=== PATIENT | male | born 1990 | race Two or more races ===

== ENCOUNTER 2020-01-30 23:34 | Emergency (ER) | payer MEDICAID, OTHER ==
[~2020-01-30] VITALS: Ht 170.2 cm; Wt 101.0 kg
--- NOTE | 2020-01-30 23:57 | NUR ---
29 YO MALE CC OF SHARP RUQ PAIN 12/05. PT STATES HE DRINKS "A LOT OF ALCOHOL" AND HIS LAST DRINK WAS APPROX 2300 TONGIHT. PT STATES HE VOMITED X3 TODAY "YELLOW ACID". PT LYING ON [facility] ASKING FOR ATIVAN.
[2020-01-31] MEDS ORDERED: LORazepam 1MG TABLET ONE ×2 (00:14→02:01)
[2020-01-31 00:20] LABS: BASOPHILS % (AUTO) 1 % (0-1); EOSINOPHILS % (AUTO) 1 % (1-7); LYMPHOCYTES % (AUTO) 50 % (22-44); MEAN CORPUSCULAR HEMOGLOBIN 31.6 pg (27.5-34.5); MEAN CORPUSCULAR HGB CONC 33.9 g/dL (33.2-36.2); MEAN PLATELET VOLUME 7.6 fL (7.4-10.4); MONOCYTES % (AUTO) 13 % (2-9); NEUTROPHILS % (AUTO) 34 % (42-75); PLATELET COUNT 241 x10^3/uL (130-400); RED BLOOD COUNT 4.51 x10^6/uL (4.38-5.82); RED CELL DISTRIBUTION WIDTH 13.5 % (9.4-14.8)
[2020-01-31] MEDS ORDERED: LORazepam 1MG TABLET PO ONE ×2 (00:30→02:00)
[2020-01-31 00:31] LABS: ALANINE AMINOTRANSFERASE 195 U/L (12-78); ALBUMIN 3.5 g/dL (3.4-5.0); ANION GAP 9 mmol/L (5-15); CALCIUM 8.3 mg/dL (8.5-10.1); CHLORIDE 105 mmol/L (98-107); CREATININE 0.88 mg/dL (0.7-1.3)
[2020-01-31 00:33] LABS: ALKALINE PHOSPHATASE 94 U/L (45-117); BILIRUBIN,TOTAL 0.3 mg/dL (0.2-1.0); TOTAL PROTEIN 7.4 g/dL (6.4-8.2)
[2020-01-31 00:46] LABS: MD SCAN
--- NOTE | 2020-01-31 01:00 | NUR ---
pt lying in bed comfortably. states ativan helps. pt verbalizes wanting to quit drinking so he can care for his son. states he got out of rehab on .
[2020-01-31 01:42] VITALS: BP 115/79
--- NOTE | 2020-01-31 02:05 | NUR ---
pt requesting more ativan before dc. states he is becoming shakey again and anxious. erp made aware.
--- NOTE | 2020-01-31 02:14 | NUR ---
pt dc home, ambulatory, being picked up by friend. all questions answered
== END 2020-01-31 02:17 | disposition home or self-care (01) ==
LOC: ED 01-31 01:11
DX: R10.13 Epigastric pain (principal); R10.11 Right upper quadrant pain; F10.20 Alcohol dependence, uncomplicated; Y90.9 Presence of alcohol in blood, level not specified
CPT/HCPCS: 36415; 76700; 80053; 83690; 83735; 85025; 99284

== ENCOUNTER 2020-02-06 19:48 | Emergency (ER) | payer SELFPAY ==
[~2020-02-06] VITALS: Ht 170.2 cm; Wt 112.4 kg
--- NOTE | 2020-02-06 20:23 | NUR ---
assessment made. PA at bedside.
--- NOTE | 2020-02-06 20:44 | NUR ---
landscaping and groundskeeping laborer at bedside. EKG done.
[2020-02-06 20:53] LABS: BASOPHILS % (AUTO) 1 % (0-1); EOSINOPHILS % (AUTO) 2 % (1-7); LYMPHOCYTES % (AUTO) 43 % (22-44); MEAN CORPUSCULAR HGB CONC 34.3 g/dL (33.2-36.2); MEAN PLATELET VOLUME 7.7 fL (7.4-10.4); MONOCYTES % (AUTO) 11 % (2-9); NEUTROPHILS % (AUTO) 42 % (42-75); PLATELET COUNT 247 x10^3/uL (130-400); RED BLOOD COUNT 4.56 x10^6/uL (4.38-5.82); RED CELL DISTRIBUTION WIDTH 13.8 % (9.4-14.8)
[2020-02-06 20:57] LABS: MD NO
[2020-02-06 21:02] LABS: ALBUMIN 3.6 g/dL (3.4-5.0); ANION GAP 6 mmol/L (5-15); CALCIUM 8.6 mg/dL (8.5-10.1); CHLORIDE 106 mmol/L (98-107); CREATININE 1.24 mg/dL (0.7-1.3)
[2020-02-06 21:05] LABS: ALKALINE PHOSPHATASE 129 U/L (45-117); BILIRUBIN,TOTAL 0.4 mg/dL (0.2-1.0); TOTAL PROTEIN 7.8 g/dL (6.4-8.2)
[2020-02-06 21:19] LABS: ALANINE AMINOTRANSFERASE 192 U/L (12-78)
[2020-02-06] MEDS ORDERED: LORazepam 1MG TABLET ONE (21:28)
[2020-02-06] MEDS ORDERED: LORazepam 1MG TABLET PO ONE (21:30)
--- NOTE | 2020-02-06 21:31 | NUR ---
patient medicated. patient states that he is willing to detox at home with medication. aware.
--- NOTE | 2020-02-06 22:32 | NUR ---
re-evaluation done. patient discharged with prescriptions and instruction. verbalized understanding.
[2020-02-06 22:33] VITALS: BP 157/101
== END 2020-02-06 22:35 | disposition home or self-care (01) ==
LOC: ED 21:30
DX: K70.10 Alcoholic hepatitis without ascites (principal); R94.5 Abnormal results of liver function studies; R94.31 Abnormal electrocardiogram [ECG] [EKG]
CPT/HCPCS: 36415; 80053; 80307; 83690; 83735; 85025; 93005; 99284

== ENCOUNTER 2020-03-16 20:57 | Emergency (ER) | payer SELFPAY ==
[~2020-03-16] VITALS: Ht 170.2 cm; Wt 106.0 kg
[2020-03-16 21:20] LABS: BASOPHILS % (AUTO) 1 % (0-1); EOSINOPHILS % (AUTO) 1 % (1-7); LYMPHOCYTES % (AUTO) 57 % (22-44); MEAN CORPUSCULAR HEMOGLOBIN 31.4 pg (27.5-34.5); MEAN CORPUSCULAR HGB CONC 34.2 g/dL (33.2-36.2); MEAN PLATELET VOLUME 7.7 fL (7.4-10.4); MONOCYTES % (AUTO) 11 % (2-9); NEUTROPHILS % (AUTO) 30 % (42-75); PLATELET COUNT 255 x10^3/uL (130-400); RED BLOOD COUNT 4.73 x10^6/uL (4.38-5.82); RED CELL DISTRIBUTION WIDTH 13.8 % (9.4-14.8)
[2020-03-16 21:29] LABS: ALANINE AMINOTRANSFERASE 223 U/L (12-78); ALBUMIN 3.8 g/dL (3.4-5.0); ANION GAP 8 mmol/L (5-15); CALCIUM 8.5 mg/dL (8.5-10.1); CHLORIDE 109 mmol/L (98-107); CREATININE 1.09 mg/dL (0.7-1.3)
[2020-03-16 21:32] LABS: ALKALINE PHOSPHATASE 98 U/L (45-117); BILIRUBIN,TOTAL 0.5 mg/dL (0.2-1.0); TOTAL PROTEIN 7.4 g/dL (6.4-8.2)
--- NOTE | 2020-03-16 21:56 | NUR ---
FIRE ENGINEER: PT WALKED BACK FROM LOBBY TO ROOM AT THIS TIME.
[2020-03-16 22:03] LABS: MD SCAN
--- NOTE | 2020-03-16 22:15 | NUR ---
PT RESTING COMFORTABLY IN [facility]. PT'S SON AT BEDSIDE, SON PROVIDED WITH WATER AND CRACKERS.
--- NOTE | 2020-03-16 22:26 | NUR ---
PT STATES "I DROVE MYSELF WITH MY SON". IONA FROM [facility] AFTER HOURS CALLED. IONA TO CALL BACK.
[2020-03-16] MEDS ORDERED: MORPHINE SULFATE 4 MG/ML, 1ML IVPush PRN (22:30)
[2020-03-16] MEDS ORDERED: LORazepam 2 MG/ML, 1ML IVPush ONE (22:30)
[2020-03-16] MEDS ORDERED: SODIUM CHLORIDE FLUSH 10ML SYR IVF ONE (22:30)
[2020-03-16] MEDS ORDERED: ONDANSETRON 2MG/ML, 2ML IVPush ONE (22:30)
[2020-03-16] MEDS ORDERED: SODIUM CHLORIDE 0.9% 1,000ML IVBOLUS ONE (22:30)
[2020-03-16] MEDS ORDERED: THIAMINE 100MG TABLET PO ONE (22:30)
--- NOTE | 2020-03-16 22:55 | NUR ---
Note phulibrado in EDM - 03/16/20 at 2318 by DAVON PER [facility]PS THIS RN TO CALL PT'S SON'S MOTHER. JERMAIN SHENG ([phone]) CALLED, HER WILL BE COMING TO BUSINESS OFFICE MANAGER THE CHILD. PATIENT WAS NOTIFIED, PATIENT AGREES.
--- NOTE | 2020-03-16 22:55 | NUR ---
PER [facility] THIS RN TO CALL PT'S SON'S MOTHER. JERMAINJOSE CARLOS BRASHERDONADO ([phone]) CALLED, HER WILL BE COMING TO SYSTEM CONFIGURATION SPECIALIST THE CHILD. PATIENT WAS NOTIFIED, PATIENT AGREES.
--- NOTE | 2020-03-16 23:05 | NUR ---
Nathan baylibrado in EDM - 03/16/20 at 2318 by DAVON [facility] CALLED BACK. CORI MONSON AT [facility] THIS RN IS TO CALL [employer] TO MANDATORY REPORT CHILD ENDANGERMENT DUE TO PT STATING THAT HE DROVE INTOXICATED WITH HIS SON.
--- NOTE | 2020-03-16 23:05 | NUR ---
[facility] CALLED BACK. PER IONA AT [facility] THIS RN IS TO CALL [employer] TO MANDATORY REPORT CHILD ENDANGERMENT DUE TO PT STATING THAT HE DROVE INTOXICATED WITH HIS SON.
--- NOTE | 2020-03-16 23:15 | NUR ---
[employer] DISPATCH CALLED BY THIS RN. THIS RN SPOKE TO RADHA WITH [facility] TO MANDATORY REPORT CHILD ENDANGERMENT DUE TO PT DRIVING INTOXICATED WITH THE CHILD. PER RADHA THEY WILL SEND OFFICERS.
--- NOTE | 2020-03-16 23:25 | NUR ---
PT'S SON'S STEP DAD, KI ALLEN, ARRIVED TO TAKE CHILD. [employer] ALSO ARRIVED TO SPEAK TO PT.
[2020-03-16] MEDS ORDERED: THIAMINE 100MG TABLET ONE (23:39)
[2020-03-16] MEDS ORDERED: MORPHINE SULFATE 4 MG/ML, 1ML ONE (23:52)
--- NOTE | 2020-03-17 | NUR ---
PER [employer] THIS WILL "BE AN INCIDENT REPORT DUE TO THE TIMELINE AND THE FACT THAT NO ONE SAW THE PT DRIVING". D OFFICER CEDRIC (BADGE #[id number]) AND OFFICER NILESH (BADGE #[id number]) SPOKE TO THE PT AND PER THE OFFICERS THE CASE # FOR THIS CASE IS [id number].
[2020-03-17] MEDS ORDERED: ONDANSETRON 2MG/ML, 2ML ONE (00:10)
--- NOTE | 2020-03-17 01:10 | NUR ---
PT CALLED A FRIEND TO COME PICK HIM UP. PT AMBULATED STEADILY WITHOUT ASSISTANCE TO DISCHARGE DESK.
[2020-03-17 01:12] VITALS: BP 121/79
== END 2020-03-17 01:21 | disposition home or self-care (01) ==
LOC: ED 23:53
DX: K85.20 Alcohol induced acute pancreatitis without necrosis or infection (principal); K29.20 Alcoholic gastritis without bleeding; F10.20 Alcohol dependence, uncomplicated; R10.13 Epigastric pain; R11.2 Nausea with vomiting, unspecified; Y90.0 Blood alcohol level of less than 20 mg/100 ml
CPT/HCPCS: 36415; 80053; 83690; 85025; 96361; 96374; 96375; 99285; J2270; J2405; J7030

== ENCOUNTER 2020-04-06 00:10 | Emergency (ER) | payer MEDICAID, OTHER ==
[~2020-04-06] VITALS: Ht 170.2 cm; Wt 100.1 kg
[2020-04-06 00:15] VITALS: BP 122/77
[2020-04-06] MEDS ORDERED: FAMOTIDINE 20 MG TABLET PO/NG ONE (00:30)
[2020-04-06] MEDS ORDERED: OXYcodone/APAP 5/325MG TABLET PO ONE (00:30)
[2020-04-06] MEDS ORDERED: MAALOX/HYOSCYAMINE/LIDOCAINE 45 ML BTL PO ONE (00:30)
[2020-04-06] MEDS ORDERED: OXYcodone/APAP 5/325MG TABLET ONE (00:35)
[2020-04-06] MEDS ORDERED: FAMOTIDINE 20 MG TABLET ONE (00:35)
[2020-04-06] MEDS ORDERED: MAALOX/HYOSCYAMINE/LIDOCAINE 45 ML BTL ONE (00:35)
--- NOTE | 2020-04-06 00:42 | NUR ---
Patient presents to ER c/o SOB and epigastric pain x8 hours. Patient states he tested +COVID approx one week ago.
[2020-04-06 00:50] LABS: BASOPHILS % (AUTO) 0 % (0-1); EOSINOPHILS % (AUTO) 0 % (1-7); LYMPHOCYTES % (AUTO) 36 % (22-44); MEAN CORPUSCULAR HEMOGLOBIN 31.3 pg (27.5-34.5); MEAN CORPUSCULAR HGB CONC 34.5 g/dL (33.2-36.2); MEAN PLATELET VOLUME 7.7 fL (7.4-10.4); MONOCYTES % (AUTO) 11 % (2-9); NEUTROPHILS % (AUTO) 53 % (42-75); PLATELET COUNT 300 x10^3/uL (130-400); RED BLOOD COUNT 5.27 x10^6/uL (4.38-5.82); RED CELL DISTRIBUTION WIDTH 13.7 % (9.4-14.8)
[2020-04-06 00:52] LABS: MD NO
[2020-04-06 01:00] LABS: ALANINE AMINOTRANSFERASE 250 U/L (12-78); ALBUMIN 3.3 g/dL (3.4-5.0); ANION GAP 12 mmol/L (5-15); CALCIUM 8.5 mg/dL (8.5-10.1); CHLORIDE 107 mmol/L (98-107); CREATININE 0.86 mg/dL (0.7-1.3)
[2020-04-06 01:02] LABS: ALKALINE PHOSPHATASE 173 U/L (45-117); BILIRUBIN,TOTAL 0.2 mg/dL (0.2-1.0)
--- NOTE | 2020-04-06 01:42 | NUR ---
Discharge instructions given. All questions and concerns addressed. Patient ambulatory with a steady gait. Belongings with patient.
== END 2020-04-06 01:43 | disposition home or self-care (01) ==
LOC: ED 01:24
DX: K85.20 Alcohol induced acute pancreatitis without necrosis or infection (principal); U07.1 COVID-19; K29.20 Alcoholic gastritis without bleeding; F10.10 Alcohol abuse, uncomplicated; R00.0 Tachycardia, unspecified; I21.9 Acute myocardial infarction, unspecified; R94.31 Abnormal electrocardiogram [ECG] [EKG]; F17.200 Nicotine dependence, unspecified, uncomplicated; Y90.9 Presence of alcohol in blood, level not specified
CPT/HCPCS: 36415; 71045; 80053; 83690; 85025; 93005; 99285

== ENCOUNTER 2020-04-18 02:53 | Emergency (ER) | payer MEDICAID, OTHER ==
[~2020-04-18] VITALS: Ht 170.2 cm; Wt 99.6 kg
[2020-04-18] MEDS ORDERED: PROMETHAZINE 25 MG/ML, 1ML IM ONE (03:30)
[2020-04-18] MEDS ORDERED: PANTOPRAZOLE 40 MG IV IVPush ONE (03:30)
[2020-04-18] MEDS ORDERED: SODIUM CHLORIDE 0.9% 1,000ML IVBOLUS ONE (03:30)
[2020-04-18] MEDS ORDERED: THIAMINE 100 MG in SODIUM CHLORIDE 0.9% 50 ML IV ONE (03:30)
[2020-04-18] MEDS ORDERED: ONDANSETRON 2MG/ML, 2ML IVPush ONE (03:30)
[2020-04-18] MEDS ORDERED: SODIUM CHLORIDE FLUSH 10ML SYR IVF ONE (03:30)
[2020-04-18] MEDS ORDERED: MORPHINE SULFATE 4 MG/ML, 1ML ONE ×2 (03:31→04:04)
[2020-04-18] MEDS ORDERED: PROMETHAZINE 25 MG/ML, 1ML ONE (03:31)
[2020-04-18] MEDS ORDERED: ONDANSETRON 2MG/ML, 2ML ONE (03:32)
[2020-04-18] MEDS: MORPHINE SULFATE 4 MG/ML, 1ML IVPush PRN ×2 (03:44→04:07)
[2020-04-18 03:48] LABS: MEAN CORPUSCULAR HEMOGLOBIN 31.5 pg (27.5-34.5); MEAN CORPUSCULAR HGB CONC 34.8 g/dL (33.2-36.2); MEAN PLATELET VOLUME 7.6 fL (7.4-10.4); PLATELET COUNT 271 x10^3/uL (130-400); RED BLOOD COUNT 5.04 x10^6/uL (4.38-5.82); RED CELL DISTRIBUTION WIDTH 13.4 % (9.4-14.8)
[2020-04-18] MEDS ORDERED: THIAMINE 100MG TABLET ONE (03:49)
[2020-04-18] MEDS ORDERED: PANTOPRAZOLE 40 MG IV ONE (03:49)
--- NOTE | 2020-04-18 03:53 | NUR ---
assessment made. ERP at bedside.
--- NOTE | 2020-04-18 03:53 | NUR ---
IV placed. blood drawn and sent to lab. medicated for pain and nausea.
[2020-04-18 03:58] LABS: ALANINE AMINOTRANSFERASE 255 U/L (12-78); ALBUMIN 3.3 g/dL (3.4-5.0); ANION GAP 8 mmol/L (5-15); CALCIUM 8.4 mg/dL (8.5-10.1); CHLORIDE 112 mmol/L (98-107); CREATININE 1.12 mg/dL (0.7-1.3)
[2020-04-18 04:00] LABS: ALKALINE PHOSPHATASE 148 U/L (45-117); BILIRUBIN,TOTAL 0.4 mg/dL (0.2-1.0); TOTAL PROTEIN 7.8 g/dL (6.4-8.2)
--- NOTE | 2020-04-18 04:11 | NUR ---
patient re-medicated for pain. thiamine hung.
[2020-04-18 04:23] LABS: MD YES
[2020-04-18 04:27] LABS: <PLATELET ESTIMATE> ADEQUATE; <PLT MORPHOLOGY> NORMAL PLT MORPH; <RBC MORPHOLOGY> NORMAL; BASOS#(MANUAL) 0.07 x10^3/uL (0-0.1); BASOS% (MANUAL) 1 % (0-1); LYMPH#(MANUAL) 4.13 x10^3/uL (1-3.4); LYMPHS% (MANUAL) 59 % (22-44); MONOS#(MANUAL) 0.49 x10^3/uL (0.3-2.7); MONOS% (MANUAL) 7 % (2-9); SEG#(MANUAL) 2.31 x10^3/uL (1.8-6.8); SEGS% (MANUAL) 33 % (42-75)
--- NOTE | 2020-04-18 04:35 | NUR ---
reliability technicians at bedside.
--- NOTE | 2020-04-18 04:51 | NUR ---
patient been environmental engineering manager light several times. explained that MD is waiting for the results and no pain medication at this time.
--- NOTE | 2020-04-18 05:18 | NUR ---
re-evaluation done. patient discharged with prescriptions and instruction. verbalized understanding.
[2020-04-18 05:19] VITALS: BP 97/68
== END 2020-04-18 05:23 | disposition home or self-care (01) ==
LOC: ED 05:20
DX: U07.1 COVID-19 (principal); J40 Bronchitis, not specified as acute or chronic; K85.20 Alcohol induced acute pancreatitis without necrosis or infection; K29.20 Alcoholic gastritis without bleeding; R00.0 Tachycardia, unspecified; Y90.0 Blood alcohol level of less than 20 mg/100 ml; F10.229 Alcohol dependence with intoxication, unspecified; R94.5 Abnormal results of liver function studies; Z72.9 Problem related to lifestyle, unspecified
CPT/HCPCS: 36415; 71045; 80053; 80320; 83690; 85025; 93005; 96365; 96372; 96375; 99285; C9113; J2270; J2405; J2550; J3411; J7030; G0480

== ENCOUNTER 2020-05-09 21:53 | Emergency (ER) | payer MEDICAID ==
[~2020-05-09] VITALS: Ht 170.2 cm; Wt 103.2 kg
[2020-05-09] MEDS ORDERED: THIAMINE 100MG TABLET ONE (22:37)
[2020-05-09] MEDS ORDERED: LORazepam 1MG TABLET ONE (22:38)
--- NOTE | 2020-05-09 22:42 | NUR ---
PT COMES IN VIA POV D/T "FEELING SICK FROM WITHDRAWALS". PER PT HE HASN'T DRANK TODAY BUT NORMALLY DRINKS "THREE LARGE CROWN ROYAL BOTTLES" A DAY. PT REPORTS LAST DRINK WAS LAST NIGHT AROUND 2200. PT RESTING IN [facility], MEDICATED PER EMAR, WCTM. MONITORING IN PLACE, MEENAKSHI AT THIS TIME.
[2020-05-09 22:59] LABS: MEAN CORPUSCULAR HEMOGLOBIN 31.1 pg (27.5-34.5); MEAN CORPUSCULAR HGB CONC 34.3 g/dL (33.2-36.2); MEAN PLATELET VOLUME 7.1 fL (7.4-10.4); PLATELET COUNT 226 x10^3/uL (130-400); RED BLOOD COUNT 5.08 x10^6/uL (4.38-5.82); RED CELL DISTRIBUTION WIDTH 14.5 % (9.4-14.8)
[2020-05-09] MEDS ORDERED: THIAMINE 100MG TABLET PO ONE (23:00)
[2020-05-09] MEDS ORDERED: LORazepam 1MG TABLET PO ONE (23:00)
[2020-05-09 23:11] LABS: ALBUMIN 3.8 g/dL (3.4-5.0); ANION GAP 10 mmol/L (5-15); CALCIUM 8.8 mg/dL (8.5-10.1); CHLORIDE 110 mmol/L (98-107)
[2020-05-09 23:22] LABS: ALKALINE PHOSPHATASE 95 U/L (45-117); BILIRUBIN,TOTAL 0.3 mg/dL (0.2-1.0); CREATININE 0.93 mg/dL (0.7-1.3); TOTAL PROTEIN 7.6 g/dL (6.4-8.2)
[2020-05-09 23:41] LABS: ALANINE AMINOTRANSFERASE 189 U/L (12-78)
[2020-05-09 23:46] LABS: MD YES
[2020-05-09 23:47] LABS: <PLATELET ESTIMATE> ADEQUATE; <PLT MORPHOLOGY> NORMAL PLT MORPH; <RBC MORPHOLOGY> NORMAL; BASOS#(MANUAL) 0.09 x10^3/uL (0-0.1); BASOS% (MANUAL) 2 % (0-1); EOS#(MANUAL) 0.18 x10^3/uL (0.0-0.4); EOS% (MANUAL) 4 % (1-7); LYMPH#(MANUAL) 2.07 x10^3/uL (1-3.4); LYMPHS% (MANUAL) 46 % (22-44); MONOS#(MANUAL) 1.13 x10^3/uL (0.3-2.7); MONOS% (MANUAL) 25 % (2-9); SEG#(MANUAL) 1.04 x10^3/uL (1.8-6.8); SEGS% (MANUAL) 23 % (42-75)
[2020-05-09 23:50] VITALS: BP 143/99
--- NOTE | 2020-05-10 00:38 | NUR ---
PT GIVEN DISCHARGE INSTRUCTIONS AND EDUCATION. PT AMBULATED TO DISCHARGE DESK, SECURITY THERE TO WALK PT OUT TO PARKING LOT AND ENSURE PT DOES NOT DRIVE HIS OWN VEHICLE HOME. PER PT HE HAS A FRIEND COMING TO PICK HIM UP AND DRIVE HIM HOME.
== END 2020-05-10 00:42 | disposition home or self-care (01) ==
LOC: ED 23:09
DX: F10.129 Alcohol abuse with intoxication, unspecified (principal); R10.11 Right upper quadrant pain; R11.2 Nausea with vomiting, unspecified; F17.210 Nicotine dependence, cigarettes, uncomplicated; J45.909 Unspecified asthma, uncomplicated; Y90.0 Blood alcohol level of less than 20 mg/100 ml
CPT/HCPCS: 36415; 80053; 80320; 83690; 85025; 99283; G0480

== ENCOUNTER 2020-05-31 00:58 | Emergency (ER) | payer MEDICAID ==
[~2020-05-31] VITALS: Ht 170.2 cm; Wt 108.4 kg
[2020-05-31] MEDS ORDERED: MAALOX/HYOSCYAMINE/LIDOCAINE 45 ML BTL ONE (01:13)
[2020-05-31] MEDS ORDERED: ONDANSETRON 2MG/ML, 2ML ONE (01:13)
[2020-05-31] MEDS ORDERED: FAMOTIDINE 20 MG/2 ML ONE (01:14)
[2020-05-31] MEDS ORDERED: FAMOTIDINE 20 MG/2 ML IV ONE (01:30)
[2020-05-31] MEDS ORDERED: ONDANSETRON 2MG/ML, 2ML IVPush ONE (01:30)
[2020-05-31] MEDS ORDERED: SODIUM CHLORIDE FLUSH 10ML SYR IVF ONE (01:30)
[2020-05-31] MEDS ORDERED: MAALOX/HYOSCYAMINE/LIDOCAINE 45 ML BTL PO ONE (01:30)
[2020-05-31] MEDS ORDERED: SODIUM CHLORIDE 0.9% 1,000ML IVBOLUS ONE (01:30)
[2020-05-31 01:35] LABS: BASOPHILS % (AUTO) 1 % (0-1); EOSINOPHILS % (AUTO) 1 % (1-7); LYMPHOCYTES % (AUTO) 50 % (22-44); MEAN CORPUSCULAR HEMOGLOBIN 31.1 pg (27.5-34.5); MEAN CORPUSCULAR HGB CONC 34.6 g/dL (33.2-36.2); MEAN PLATELET VOLUME 7.8 fL (7.4-10.4); MONOCYTES % (AUTO) 8 % (2-9); NEUTROPHILS % (AUTO) 40 % (42-75); PLATELET COUNT 224 x10^3/uL (130-400); RED BLOOD COUNT 5.17 x10^6/uL (4.38-5.82); RED CELL DISTRIBUTION WIDTH 14.2 % (9.4-14.8)
[2020-05-31 01:38] LABS: MD NO
[2020-05-31 01:44] LABS: ALANINE AMINOTRANSFERASE 179 U/L (12-78); ALBUMIN 3.7 g/dL (3.4-5.0); ANION GAP 9 mmol/L (5-15); CALCIUM 8.8 mg/dL (8.5-10.1); CHLORIDE 108 mmol/L (98-107); CREATININE 0.98 mg/dL (0.7-1.3)
[2020-05-31 01:46] LABS: ALKALINE PHOSPHATASE 105 U/L (45-117); BILIRUBIN,TOTAL 0.4 mg/dL (0.2-1.0); TOTAL PROTEIN 7.9 g/dL (6.4-8.2)
--- NOTE | 2020-05-31 01:56 | NUR ---
PT SITTING UPRIGHT ON MEENAKSHI FUENTES VSS. PT DENIES ANY NEEDS AT THIS TIME. CALL LIGHT IN REACH. ERP AT BEDSIDE.
--- NOTE | 2020-05-31 01:58 | NUR ---
Nathan wong in DAVID - 05/31/20 at 0158 by МАРИЯ PT CALLED TO NURSING STATION SAYING "I WANT TO GO HOME"
[2020-05-31 02:39] VITALS: BP 118/72
== END 2020-05-31 02:42 | disposition home or self-care (01) ==
LOC: ED 01:47
DX: R10.13 Epigastric pain (principal); R94.5 Abnormal results of liver function studies; F10.20 Alcohol dependence, uncomplicated; Z72.9 Problem related to lifestyle, unspecified; R10.11 Right upper quadrant pain; R11.2 Nausea with vomiting, unspecified; R00.0 Tachycardia, unspecified; Y90.0 Blood alcohol level of less than 20 mg/100 ml
CPT/HCPCS: 36415; 80053; 83690; 85025; 93005; 96361; 96374; 96375; 99284; J2405; J7030

== ENCOUNTER 2020-06-12 20:55 | Emergency (ER) | payer MEDICAID ==
[~2020-06-12] VITALS: Ht 172.7 cm; Wt 108.3 kg
--- NOTE | 2020-06-12 21:19 | NUR ---
Pt arrived to room 25, RN at bedside. Pt reports, "my liver and my pancreas are hurting". 87% RA. Pt on 2L 02.
--- NOTE | 2020-06-12 21:26 | NUR ---
Provider at bedside.
[2020-06-12] MEDS ORDERED: LORazepam 2 MG/ML, 1ML IVPush ONE (21:30)
[2020-06-12] MEDS ORDERED: SODIUM CHLORIDE 0.9% 1,000ML IVBOLUS ONE (21:30)
[2020-06-12] MEDS ORDERED: ONDANSETRON 2MG/ML, 2ML IVPush ONE (21:30)
[2020-06-12] MEDS ORDERED: SODIUM CHLORIDE FLUSH 10ML SYR IVF ONE (21:30)
[2020-06-12 21:52] LABS: BASOPHILS % (AUTO) 1 % (0-1); EOSINOPHILS % (AUTO) 1 % (1-7); LYMPHOCYTES % (AUTO) 58 % (22-44); MEAN CORPUSCULAR HEMOGLOBIN 31.4 pg (27.5-34.5); MEAN CORPUSCULAR HGB CONC 35.3 g/dL (33.2-36.2); MEAN PLATELET VOLUME 7.4 fL (7.4-10.4); MONOCYTES % (AUTO) 7 % (2-9); NEUTROPHILS % (AUTO) 33 % (42-75); PLATELET COUNT 277 x10^3/uL (130-400); RED BLOOD COUNT 5.13 x10^6/uL (4.38-5.82)
[2020-06-12 21:53] LABS: ALANINE AMINOTRANSFERASE 188 U/L (12-78); ALBUMIN 3.6 g/dL (3.4-5.0); ANION GAP 11 mmol/L (5-15); CALCIUM 8.4 mg/dL (8.5-10.1); CHLORIDE 110 mmol/L (98-107); CREATININE 1.33 mg/dL (0.7-1.3)
[2020-06-12] MEDS ORDERED: ONDANSETRON 2MG/ML, 2ML ONE (21:53)
[2020-06-12] MEDS ORDERED: LORazepam 2 MG/ML, 1ML ONE (21:53)
[2020-06-12] MEDS ORDERED: MORPHINE SULFATE 4 MG/ML, 1ML ONE (21:53)
[2020-06-12 21:56] LABS: ALKALINE PHOSPHATASE 103 U/L (45-117); BILIRUBIN,TOTAL 0.3 mg/dL (0.2-1.0); TOTAL PROTEIN 7.5 g/dL (6.4-8.2)
[2020-06-12 21:57] LABS: MD NO
[2020-06-12] MEDS: MORPHINE SULFATE 4 MG/ML, 1ML IVPush PRN (22:12)
[2020-06-12] MEDS ORDERED: THIAMINE 100MG TABLET PO ONE (23:00)
[2020-06-13] MEDS ORDERED: THIAMINE 100MG TABLET ONE (00:05)
[2020-06-13] MEDS ORDERED: MORPHINE SULFATE 4 MG/ML, 1ML ONE (00:08)
[2020-06-13] MEDS: MORPHINE SULFATE 4 MG/ML, 1ML IVPush PRN (00:09)
--- NOTE | 2020-06-13 00:16 | NUR ---
Medicated per eMAR thamine and morphine. Provided pt apple juice upon request.
--- NOTE | 2020-06-13 01:46 | NUR ---
Pt's HR still 117, informing provider. 1L NS ordered, infusing now.
[2020-06-13] MEDS ORDERED: SODIUM CHLORIDE 0.9% 1,000ML IVBOLUS ONE (02:00)
[2020-06-13 02:58] VITALS: BP 126/66
--- NOTE | 2020-06-13 03:03 | NUR ---
Dr. Fox aware of pt's HR, pt being discharged. Pt ambulating steadily, equal gait. Pt agrees with and understands discharge plan and instructions.
--- NOTE | 2020-06-13 03:04 | NUR ---
IV removed, catheter intact, hemostasis achieved, dressing applied.
== END 2020-06-13 03:05 | disposition home or self-care (01) ==
LOC: ED 21:33
DX: K29.20 Alcoholic gastritis without bleeding (principal); F10.10 Alcohol abuse, uncomplicated; R10.13 Epigastric pain; R10.84 Generalized abdominal pain; Y90.0 Blood alcohol level of less than 20 mg/100 ml
CPT/HCPCS: 36415; 80053; 80320; 83690; 85025; 96361; 96374; 96375; 96376; 99285; J2060; J2270; J2405; J7030; G0480

== ENCOUNTER 2020-07-03 12:28 | Inpatient (IN) | payer MEDICAID ==
[~2020-07-03] VITALS: Ht 170.2 cm; Wt 89.6 kg
--- NOTE | 2020-07-03 12:40 | NUR ---
PT BIB EMS FOR ABD PAIN AND ETOH DETOX. HX OF PANCREATITIS AND ETOH ABUSE. PER EMS PT WAS SEEN AT [facility] TWICE YESTERDAY FOR SAME. PT HAS TREMORS IN BOTH HANDS. PT GIVEN 4MG ZOFRAN JOB PLACEMENT COUNSELOR. PT RESING IN [facility]. CONNECTED TO ALL MONITORING EQUIPMENT.
[2020-07-03] MEDS ORDERED: MAGNESIUM SULFATE/D5W 0 ML ONE (13:21)
[2020-07-03] MEDS ORDERED: ONDANSETRON 2MG/ML, 2ML ONE (13:21)
[2020-07-03] MEDS ORDERED: LORazepam 2 MG/ML, 1ML ONE ×2 (13:22→14:08)
[2020-07-03] MEDS ORDERED: SODIUM CHLORIDE FLUSH 10ML SYR IVF ONE (13:30)
[2020-07-03] MEDS ORDERED: ONDANSETRON 2MG/ML, 2ML IVPush ONE (13:30)
[2020-07-03] MEDS ORDERED: MAGNESIUM SULFATE 1 GM, THIAMINE 100 MG, FOLIC ACID 1 MG, MVI ADULT 10 ML in SODIUM CHL... IV ONE (13:30)
[2020-07-03] MEDS: LORazepam 2 MG/ML, 1ML IVPush PRN ×4 (13:37→20:42)
[2020-07-03 13:40] LABS: BASOPHILS % (AUTO) 2 % (0-1); EOSINOPHILS % (AUTO) 1 % (1-7); LYMPHOCYTES % (AUTO) 34 % (22-44); MEAN CORPUSCULAR HEMOGLOBIN 31.2 pg (27.5-34.5); MEAN CORPUSCULAR HGB CONC 35.1 g/dL (33.2-36.2); MEAN PLATELET VOLUME 7.4 fL (7.4-10.4); MONOCYTES % (AUTO) 11 % (2-9); NEUTROPHILS % (AUTO) 53 % (42-75); PLATELET COUNT 276 x10^3/uL (130-400); RED CELL DISTRIBUTION WIDTH 13.3 % (9.4-14.8)
[2020-07-03 13:46] LABS: ALANINE AMINOTRANSFERASE 166 U/L (12-78); ALBUMIN 4.2 g/dL (3.4-5.0); ANION GAP 12 mmol/L (5-15); CHLORIDE 105 mmol/L (98-107); CREATININE 1.44 mg/dL (0.7-1.3)
[2020-07-03 13:48] LABS: ALKALINE PHOSPHATASE 85 U/L (45-117); BILIRUBIN,TOTAL 0.6 mg/dL (0.2-1.0)
[2020-07-03] MEDS ORDERED: MAGNESIUM SULFATE 1 GM, THIAMINE 100 MG, FOLIC ACID 1 MG in SODIUM CHLORIDE 0.9% 1,000 ML IV ONE (13:51)
--- NOTE | 2020-07-03 13:52 | NUR ---
PT UPRIGHT ON GURNEY, TREMULOUS - MEDICATED PER EMAR, AWAKE AND CALM. RESPONDS APPROPRIATELY TO STAFF. COMFORT MEASURES PROVIDED. AWAITING RALLY BAG. CALL LIGHT WITHIN REACH.
[2020-07-03 14:18] LABS: MD SCAN
[2020-07-03] MEDS ORDERED: MORPHINE SULFATE 4 MG/ML, 1ML ONE ×2 (15:05→16:09)
[2020-07-03] MEDS: MORPHINE SULFATE 4 MG/ML, 1ML IVPush PRN ×2 (15:10→16:12)
--- NOTE | 2020-07-03 15:17 | NUR ---
PT CALMLY SITTING UP ON GURNEY WATCHING TV. MEDICATED PER EMAR. NAD/VSS. COMFORT MEASURES PROVIDED.CALL LIGHT WITHIN REACH.
--- NOTE | 2020-07-03 16:03 | NUR ---
PT SITTING UP ON BED CALMLY, WATCHING TV. MEDICATED PER EMAR. NAD/VSS. COMFORT MEASURES PROVIDED, NO NEEDS AT THIS TIME. CALL LIGHT WITHIN REACH.
[2020-07-03] MEDS ORDERED: SODIUM CHLORIDE FLUSH 10ML SYR IVF PRN (16:30)
--- NOTE | 2020-07-03 17:03 | NUR ---
PT SITTING ON BED, WATCHING TV. PT STATES MORE COMFORTABLE AFTER SECOND DOSE OF PAIN MEDICATION. NAD. COMFORT MEASURES PROVIDED. CALL LIGHT WITHIN REACH.
--- NOTE | 2020-07-03 17:20 | NUR ---
Pt to be admitted to [facility], room 485. Report called to DIAMANTE.
[2020-07-03 18:27] VITALS: BP 142/74
[2020-07-03] MEDS ORDERED: POLYETHYLENE GLYCOL 17 GM PACKET PO PRN (18:30)
[2020-07-03] MEDS ORDERED: BISACODYL 10 MG SUPP PR PRN (18:30)
[2020-07-03] MEDS ORDERED: ONDANSETRON 2MG/ML, 2ML IVPush PRN (18:30)
[2020-07-03] MEDS: HEPARIN 5,000 UNITS/ML, 1ML SQ SCH (18:51)
[2020-07-03] MEDS: morphine SULFATE 10 MG/ML, 1ML IVPush PRN ×2 (18:52→23:25)
[2020-07-03] MEDS: THIAMINE 100MG TABLET PO SCH (20:41)
[2020-07-03] MEDS: SODIUM CHLORIDE 0.9% 1,000 ML IV SCH (21:00)
[2020-07-03 22:53] VITALS: BP 128/84
[2020-07-04] MEDS: LORazepam 2 MG/ML, 1ML IVPush PRN ×2 (00:57→19:59)
[2020-07-04 02:00] VITALS: BP 154/87
[2020-07-04] MEDS: HEPARIN 5,000 UNITS/ML, 1ML SQ SCH ×4 (02:29→19:59)
[2020-07-04 06:04] LABS: ALBUMIN 3.6 g/dL (3.4-5.0); ANION GAP 9 mmol/L (5-15); CALCIUM 8.8 mg/dL (8.5-10.1); CHLORIDE 104 mmol/L (98-107)
[2020-07-04 06:10] LABS: ALANINE AMINOTRANSFERASE 120 U/L (12-78); ALKALINE PHOSPHATASE 64 U/L (45-117); BILIRUBIN,TOTAL 0.8 mg/dL (0.2-1.0); CREATININE 1.21 mg/dL (0.7-1.3)
[2020-07-04] MEDS: morphine SULFATE 10 MG/ML, 1ML IVPush PRN ×5 (06:16→21:47)
[2020-07-04 06:21] VITALS: BP 146/98
[2020-07-04] MEDS: THIAMINE 100MG TABLET PO SCH ×2 (08:21→19:58)
[2020-07-04] MEDS: MULTIVITAMINS/MINERALS TABLET PO SCH (08:21)
[2020-07-04] MEDS: FOLIC ACID 1 MG TABLET PO SCH (08:22)
[2020-07-04] MEDS: SENNA/DOCUSATE TABLET PO SCH (08:22)
[2020-07-04] MEDS: SODIUM CHLORIDE 0.9% 1,000 ML IV SCH (10:20)
[2020-07-04] MEDS: CHLORDIAZEPOXIDE 25 MG CAPSULE PO PRN ×2 (10:23→16:56)
[2020-07-04 11:45] VITALS: BP 154/93
[2020-07-04 19:11] VITALS: BP 141/93
[2020-07-05] MEDS: SODIUM CHLORIDE 0.9% 1,000 ML IV SCH ×2 (00:27→12:58)
[2020-07-05 01:23] VITALS: BP 143/94
[2020-07-05] MEDS: morphine SULFATE 10 MG/ML, 1ML IVPush PRN ×2 (02:24→07:16)
[2020-07-05 05:42] LABS: BASOPHILS % (AUTO) 1 % (0-1); EOSINOPHILS % (AUTO) 2 % (1-7); LYMPHOCYTES % (AUTO) 40 % (22-44); MONOCYTES % (AUTO) 8 % (2-9); NEUTROPHILS % (AUTO) 48 % (42-75); RED CELL DISTRIBUTION WIDTH 13.4 % (9.4-14.8)
[2020-07-05 05:54] LABS: ANION GAP 9 mmol/L (5-15); CALCIUM 8.9 mg/dL (8.5-10.1); CHLORIDE 103 mmol/L (98-107); CREATININE 1.13 mg/dL (0.7-1.3)
[2020-07-05 06:18] VITALS: BP 142/87
[2020-07-05 06:37] LABS: MEAN CORPUSCULAR HEMOGLOBIN 30.9 pg (27.5-34.5); MEAN CORPUSCULAR HGB CONC 35.1 g/dL (33.2-36.2); PLATELET COUNT 227 x10^3/uL (130-400); RED BLOOD COUNT 5.19 x10^6/uL (4.38-5.82)
[2020-07-05 06:38] LABS: MD NO
[2020-07-05] MEDS: LORazepam 2 MG/ML, 1ML IVPush PRN ×4 (08:28→21:50)
[2020-07-05] MEDS: FOLIC ACID 1 MG TABLET PO SCH (08:29)
[2020-07-05] MEDS: SENNA/DOCUSATE TABLET PO SCH (08:29)
[2020-07-05] MEDS: MULTIVITAMINS/MINERALS TABLET PO SCH (08:29)
[2020-07-05] MEDS: THIAMINE 100MG TABLET PO SCH ×2 (08:29→20:16)
[2020-07-05] MEDS: HEPARIN 5,000 UNITS/ML, 1ML SQ SCH ×2 (10:19→18:30)
[2020-07-05] MEDS: OXYcodone IR 5MG TABLET PO PRN ×3 (10:19→20:16)
[2020-07-05 11:45] VITALS: BP 126/85
[2020-07-05 19:45] VITALS: BP 134/82
[2020-07-06] MEDS: OXYcodone IR 5MG TABLET PO PRN ×3 (00:27→09:10)
[2020-07-06 01:39] VITALS: BP 147/92
[2020-07-06] MEDS: LORazepam 2 MG/ML, 1ML IVPush PRN ×2 (02:04→06:43)
[2020-07-06] MEDS: SODIUM CHLORIDE 0.9% 1,000 ML IV SCH (02:04)
[2020-07-06] MEDS: HEPARIN 5,000 UNITS/ML, 1ML SQ SCH ×2 (02:44→10:06)
[2020-07-06 07:22] VITALS: BP 138/82
[2020-07-06] MEDS: MULTIVITAMINS/MINERALS TABLET PO SCH (09:09)
[2020-07-06] MEDS: SENNA/DOCUSATE TABLET PO SCH (09:10)
[2020-07-06] MEDS: THIAMINE 100MG TABLET PO SCH (09:10)
[2020-07-06] MEDS: FOLIC ACID 1 MG TABLET PO SCH (09:10)
[2020-07-06] MEDS ORDERED: OMEPRAZOLE 20 MG CAPSULE.DR PO SCH (10:00)
[2020-07-06] MEDS: CHLORDIAZEPOXIDE 25 MG CAPSULE PO PRN (10:07)
[2020-07-06] MEDS ORDERED: MULT-484 PO (11:15)
[2020-07-06] MEDS ORDERED: FOLI1TAB32 PO (11:15)
[2020-07-06] MEDS ORDERED: ZOLP5TAB6 PO (11:15)
[2020-07-06] MEDS ORDERED: THIA100T67 PO (11:15)
[2020-07-06] MEDS ORDERED: OMEP-110 PO (11:15)
[2020-07-06 12:16] VITALS: BP 121/82
== END 2020-07-06 12:39 | disposition home or self-care (01) | DRG 309 ==
LOC: ED 15:30 → EDIP 16:10 → SUATTDRO 16:17 → 4EST 17:58 → DCLOUNGE 07-06 12:29
PROVIDERS: ADMIT Emergency Medicine; ATTEND Hospitalist
DX: R00.0 Tachycardia, unspecified (principal); F10.231 Alcohol dependence with withdrawal delirium; F10.221 Alcohol dependence with intoxication delirium; N18.2 Chronic kidney disease, stage 2 (mild); F51.01 Primary insomnia; R74.01 Elevation of levels of liver transaminase levels; Y90.9 Presence of alcohol in blood, level not specified; Z79.899 Other long term (current) drug therapy
CPT/HCPCS: 36415; 71045; 80048; 80053; 80320; 83690; 85025; 93005; 96374; 96375; 99285; G0378; J1644; J2405; J3411; J3475; G0480; J2060; J2270; J7030

== ENCOUNTER 2020-07-09 23:38 | Emergency (ER) | payer MEDICAID ==
[~2020-07-09] VITALS: Ht 170.2 cm; Wt 91.0 kg
[~2020-07-09 23:38] MED LIST: FOLI1TAB32 PO; MULT-484 PO; OMEP-110 PO; THIA100T67 PO; ZOLP5TAB6 PO
--- NOTE | 2020-07-09 23:47 | NUR ---
PT BIB [facility] FOR ABD PAIN X 2 HRS. HX OF PANCREATITIS. PT SAYS "FEELS SAME" PT HAS HX OF ETOH ABUSE. LAST DRINK 2 HRS AGO. THOUGHT IT MIGHT HELP. HR ELEVATED. PAIN 01/05. AT BEDSIDE. PT PLACED ON PULSE OX AND BP MONITORING
[2020-07-09] MEDS ORDERED: MORPHINE SULFATE 4 MG/ML, 1ML ONE (23:50)
[2020-07-09] MEDS ORDERED: ONDANSETRON 2MG/ML, 2ML ONE (23:50)
[2020-07-09 23:57] LABS: BASOPHILS % (AUTO) 1 % (0-1); EOSINOPHILS % (AUTO) 2 % (1-7); LYMPHOCYTES % (AUTO) 55 % (22-44); MEAN CORPUSCULAR HEMOGLOBIN 31.5 pg (27.5-34.5); MEAN CORPUSCULAR HGB CONC 34.8 g/dL (33.2-36.2); MEAN PLATELET VOLUME 7.8 fL (7.4-10.4); MONOCYTES % (AUTO) 9 % (2-9); NEUTROPHILS % (AUTO) 33 % (42-75); PLATELET COUNT 240 x10^3/uL (130-400); RED BLOOD COUNT 5.21 x10^6/uL (4.38-5.82); RED CELL DISTRIBUTION WIDTH 13.7 % (9.4-14.8)
[2020-07-09] MEDS: MORPHINE SULFATE 4 MG/ML, 1ML IVPush PRN (23:58)
[2020-07-10] MEDS ORDERED: ONDANSETRON 2MG/ML, 2ML IVPush ONE
[2020-07-10 00:04] LABS: ALANINE AMINOTRANSFERASE 136 U/L (12-78); ANION GAP 11 mmol/L (5-15); CALCIUM 7.9 mg/dL (8.5-10.1); CHLORIDE 114 mmol/L (98-107)
--- NOTE | 2020-07-10 00:07 | NUR ---
PT MEDICATED FOR PAIN. FLUIDS RUNNING. PT GIVEN URINAL FOR UA. PT PLACED ON 2 L O2 AFTER MORPINE GIVEN. WILL CONTINUE TO MONITOR. CALL LIGHT IN REACH
[2020-07-10 00:16] LABS: ALKALINE PHOSPHATASE 119 U/L (45-117); BILIRUBIN,TOTAL 0.3 mg/dL (0.2-1.0); CREATININE 1.13 mg/dL (0.7-1.3); TOTAL PROTEIN 7.8 g/dL (6.4-8.2)
[2020-07-10 00:31] LABS: MD SCAN
[2020-07-10] MEDS ORDERED: MORPHINE SULFATE 4 MG/ML, 1ML ONE (00:42)
[2020-07-10] MEDS: MORPHINE SULFATE 4 MG/ML, 1ML IVPush PRN (00:45)
[2020-07-10] MEDS ORDERED: PANTOPRAZOLE 40 MG IV ONE (00:52)
--- NOTE | 2020-07-10 00:56 | NUR ---
BREAK RN: DR MARIN HAS UPDATED PATIENT. PATIENT MEDICATED FOR 8/10 ABD PAIN. VS STABLE. NO ACUTE DISTRESS NOTED. CALL LIGHT IN PLACE. WILL CONTINUE TO MONITOR
[2020-07-10] MEDS ORDERED: SODIUM CHLORIDE 0.9% 1,000ML IVBOLUS ONE ×2 (01:00)
[2020-07-10] MEDS ORDERED: PANTOPRAZOLE 40 MG IV IVPush ONE (01:00)
--- NOTE | 2020-07-10 01:06 | NUR ---
BREAK RN: REPORT GIVEN TO LAYO FARIAS
[2020-07-10 01:15] VITALS: BP 100/45
--- NOTE | 2020-07-10 01:29 | NUR ---
Patient given discharge instructions and they have confirmed that they understand the instructions. Patient ambulatory with steady gait.
== END 2020-07-10 01:32 | disposition home or self-care (01) ==
LOC: ED 07-10 00:44
DX: K29.20 Alcoholic gastritis without bleeding (principal); F10.120 Alcohol abuse with intoxication, uncomplicated; Z72.9 Problem related to lifestyle, unspecified; Y90.9 Presence of alcohol in blood, level not specified
CPT/HCPCS: 36415; 80053; 80320; 83690; 85025; 96361; 96374; 96375; 96376; 99284; C9113; J2270; J2405; J7030; G0480

== ENCOUNTER 2020-07-10 18:48 | Emergency (ER) | payer MEDICAID ==
[~2020-07-10] VITALS: Ht 170.2 cm; Wt 107.1 kg
--- NOTE | 2020-07-10 19:27 | NUR ---
Pt reports "I woke up feeling like shit then took some shots and next thing you know my stomach just started hurting, I started shaking, sweating." Pt reports he threw up three times today.
--- NOTE | 2020-07-10 19:30 | NUR ---
Pt reports hx of pancreatitis.
--- NOTE | 2020-07-10 19:30 | NUR ---
Pt reports he has been drinking for four years. Provider at bedside.
--- NOTE | 2020-07-10 19:50 | NUR ---
IV started, NS infusing.
[2020-07-10] MEDS ORDERED: ONDANSETRON 2MG/ML, 2ML ONE (19:52)
[2020-07-10] MEDS ORDERED: LORazepam 2 MG/ML, 1ML ONE (19:52)
[2020-07-10] MEDS ORDERED: FAMOTIDINE 20 MG/2 ML ONE (19:53)
[2020-07-10] MEDS ORDERED: LORazepam 2 MG/ML, 1ML IVPush ONE (20:00)
[2020-07-10] MEDS ORDERED: ONDANSETRON 2MG/ML, 2ML IVPush ONE (20:00)
[2020-07-10] MEDS ORDERED: SODIUM CHLORIDE 0.9% 1,000ML IVBOLUS ONE (20:00)
[2020-07-10] MEDS ORDERED: SODIUM CHLORIDE FLUSH 10ML SYR IVF ONE (20:00)
[2020-07-10] MEDS ORDERED: FAMOTIDINE 20 MG/2 ML IVPush ONE (20:00)
[2020-07-10 20:17] LABS: BASOPHILS % (AUTO) 2 % (0-1); EOSINOPHILS % (AUTO) 2 % (1-7); LYMPHOCYTES % (AUTO) 60 % (22-44); MEAN CORPUSCULAR HEMOGLOBIN 31.2 pg (27.5-34.5); MEAN CORPUSCULAR HGB CONC 34.6 g/dL (33.2-36.2); MEAN PLATELET VOLUME 7.9 fL (7.4-10.4); MONOCYTES % (AUTO) 9 % (2-9); NEUTROPHILS % (AUTO) 28 % (42-75); PLATELET COUNT 223 x10^3/uL (130-400); RED BLOOD COUNT 4.92 x10^6/uL (4.38-5.82); RED CELL DISTRIBUTION WIDTH 13.9 % (9.4-14.8)
[2020-07-10 20:20] LABS: MD NO
[2020-07-10 20:22] LABS: ALANINE AMINOTRANSFERASE 148 U/L (12-78); ALBUMIN 3.9 g/dL (3.4-5.0); ANION GAP 9 mmol/L (5-15); CALCIUM 8.2 mg/dL (8.5-10.1); CHLORIDE 112 mmol/L (98-107); CREATININE 1.06 mg/dL (0.7-1.3)
[2020-07-10 20:24] LABS: ALKALINE PHOSPHATASE 101 U/L (45-117); BILIRUBIN,TOTAL 0.4 mg/dL (0.2-1.0); TOTAL PROTEIN 7.5 g/dL (6.4-8.2)
--- NOTE | 2020-07-10 20:36 | NUR ---
Provider at bedside.
[2020-07-10] MEDS ORDERED: MORPHINE SULFATE 4 MG/ML, 1ML ONE ×2 (20:50→21:39)
[2020-07-10] MEDS: MORPHINE SULFATE 4 MG/ML, 1ML IVPush PRN ×2 (20:52→21:42)
--- NOTE | 2020-07-10 20:59 | NUR ---
Medicated per eMAR.
--- NOTE | 2020-07-10 21:00 | NUR ---
Pt to CT
[2020-07-10] MEDS ORDERED: OMNIPAQUE 350 MG/ML, 100ML BOTTLE ONE (21:19)
--- NOTE | 2020-07-10 21:42 | NUR ---
2nd dose of morphine given per eMAR.
--- NOTE | 2020-07-10 22:05 | NUR ---
Provider at bedside.
[2020-07-10 22:35] VITALS: BP 119/66
--- NOTE | 2020-07-10 22:36 | NUR ---
IV removed, catheter intact, hemostasis achieved, dressing applied. Pt agrees with and understands discharge plan and instructions.
--- NOTE | 2020-07-10 22:41 | NUR ---
Provided pt cab voucher.
== END 2020-07-10 22:47 | disposition home or self-care (01) ==
LOC: ED 20:39
DX: R10.13 Epigastric pain (principal); R11.2 Nausea with vomiting, unspecified; F10.10 Alcohol abuse, uncomplicated; R00.0 Tachycardia, unspecified; Y90.0 Blood alcohol level of less than 20 mg/100 ml
CPT/HCPCS: 36415; 74177; 80053; 83690; 85025; 93005; 96361; 96374; 96375; 96376; 99285; J2060; J2270; J2405; J7030; Q9967

== ENCOUNTER 2020-07-12 13:37 | Emergency (ER) | payer MEDICAID ==
[~2020-07-12] VITALS: Ht 170.2 cm; Wt 106.3 kg
--- NOTE | 2020-07-12 14:21 | NUR ---
Break RN- pt brought back from triage with chief complaint of abd pain for few days. PT reports being at "[facility] for detox but the pain became too bad to stay there". Pt denies n/v, cp, sob.
--- NOTE | 2020-07-12 14:44 | NUR ---
RAMONE ROBERTO AT BEDSIDE FOR EVALUATION.
[2020-07-12] MEDS ORDERED: FAMOTIDINE 20 MG TABLET PO ONE (15:00)
[2020-07-12] MEDS ORDERED: MAALOX/HYOSCYAMINE/LIDOCAINE 45 ML BTL ONE (15:00)
[2020-07-12] MEDS ORDERED: DICYCLOMINE 10 MG/ML, 2ML IM ONE (15:00)
[2020-07-12] MEDS ORDERED: FAMOTIDINE 20 MG TABLET ONE (15:00)
[2020-07-12] MEDS ORDERED: MAALOX/HYOSCYAMINE/LIDOCAINE 45 ML BTL PO ONE (15:00)
[2020-07-12] MEDS ORDERED: DICYCLOMINE 10 MG/ML, 2ML ONE (15:00)
--- NOTE | 2020-07-12 15:08 | NUR ---
PT MEDICATED PER ERP ORDER FOR EPIGASTRIC AND RUQ PAIN. CALL LIGHT WITHIN REACH.
[2020-07-12 15:09] LABS: BASOPHILS % (AUTO) 1 % (0-1); EOSINOPHILS % (AUTO) 1 % (1-7); LYMPHOCYTES % (AUTO) 44 % (22-44); MEAN CORPUSCULAR HEMOGLOBIN 30.7 pg (27.5-34.5); MEAN CORPUSCULAR HGB CONC 34.6 g/dL (33.2-36.2); MEAN PLATELET VOLUME 7.7 fL (7.4-10.4); MONOCYTES % (AUTO) 13 % (2-9); NEUTROPHILS % (AUTO) 42 % (42-75); PLATELET COUNT 211 x10^3/uL (130-400); RED BLOOD COUNT 4.95 x10^6/uL (4.38-5.82); RED CELL DISTRIBUTION WIDTH 13.1 % (9.4-14.8)
[2020-07-12 15:18] LABS: ANION GAP 6 mmol/L (5-15); CALCIUM 8.6 mg/dL (8.5-10.1); CHLORIDE 107 mmol/L (98-107); CREATININE 1.22 mg/dL (0.7-1.3)
[2020-07-12 15:35] LABS: MD SCAN
--- NOTE | 2020-07-12 16:00 | NUR ---
PT STATES PAIN NOT RELIEVED WITH MEDICATION. ALL LAB RESULTS BACK, PT FOR RECHECK BY ERP.
[2020-07-12] MEDS ORDERED: HALOPERIDOL 5 MG/ML ONE (17:11)
[2020-07-12] MEDS ORDERED: LORazepam 1MG TABLET ONE (17:16)
[2020-07-12 17:25] VITALS: BP 132/75
[2020-07-12] MEDS ORDERED: LORazepam 1MG TABLET PO ONE (17:30)
[2020-07-12] MEDS ORDERED: HALOPERIDOL 5 MG/ML IM ONE (18:00)
== END 2020-07-12 17:27 | disposition home or self-care (01) ==
LOC: ED 13:58
DX: R10.13 Epigastric pain (principal); R10.31 Right lower quadrant pain
CPT/HCPCS: 36415; 80048; 80320; 82040; 83690; 85025; 93005; 96372; 99284; J0500; J1630; G0480

== ENCOUNTER 2020-07-20 06:37 | Inpatient (IN) | payer MEDICAID ==
[~2020-07-20] VITALS: Ht 170.2 cm; Wt 112.9 kg
--- NOTE | 2020-07-20 06:44 | NUR ---
BIB EMS, PT WALKED IN. PT HERE FOR ABDOMINAL PAIN AND HER "THREW UP 6 TIMES BEFORE WALKING IN HERE". STATES HISTORY OF ETOH, WITHDRAWAL SEIZURES AND PANCREATITIS. PT STATES LAST DRINK 6 HOURS AGO, 6 PINKS OF WHISKEY A DAY. SEIZURE PADS IN PLACE, PT ON ALL MONITORS, PT GRUNTING IN PAIN, STATES 9/10 AT THIS TIME. A/O X4. AWAITING ERP EVAL
--- NOTE | 2020-07-20 06:55 | NUR ---
REPORT RECEIVED FROM INDER VASQUES.
[2020-07-20] MEDS ORDERED: LORazepam 2 MG/ML, 1ML IVPush ONE ×2 (07:00→09:30)
[2020-07-20] MEDS ORDERED: FAMOTIDINE 20 MG/2 ML IVPush ONE (07:00)
[2020-07-20] MEDS ORDERED: SODIUM CHLORIDE FLUSH 10ML SYR IVF ONE (07:00)
[2020-07-20] MEDS ORDERED: ONDANSETRON 2MG/ML, 2ML IVPush ONE (07:00)
[2020-07-20] MEDS ORDERED: ONDANSETRON 2MG/ML, 2ML ONE (07:07)
[2020-07-20] MEDS ORDERED: LORazepam 2 MG/ML, 1ML ONE ×2 (07:08→09:09)
[2020-07-20] MEDS ORDERED: FAMOTIDINE 20 MG/2 ML ONE (07:08)
[2020-07-20 07:17] LABS: MEAN CORPUSCULAR HEMOGLOBIN 31.1 pg (27.5-34.5); MEAN CORPUSCULAR HGB CONC 34.6 g/dL (33.2-36.2); MEAN PLATELET VOLUME 7.6 fL (7.4-10.4); PLATELET COUNT 222 x10^3/uL (130-400); RED BLOOD COUNT 4.91 x10^6/uL (4.38-5.82); RED CELL DISTRIBUTION WIDTH 13.9 % (9.4-14.8)
[2020-07-20 07:27] LABS: ALANINE AMINOTRANSFERASE 101 U/L (12-78); ALBUMIN 3.8 g/dL (3.4-5.0); ANION GAP 9 mmol/L (5-15); CALCIUM 8.2 mg/dL (8.5-10.1); CHLORIDE 108 mmol/L (98-107); CREATININE 1.01 mg/dL (0.7-1.3)
--- NOTE | 2020-07-20 07:28 | NUR ---
PIV EST ON R HAND WITH NO COMPLICATIONS. PT MEDICATED PER EMAR. PT TOLERATED WELL.
[2020-07-20 07:29] LABS: ALKALINE PHOSPHATASE 71 U/L (45-117); BILIRUBIN,TOTAL 0.3 mg/dL (0.2-1.0); TOTAL PROTEIN 7.5 g/dL (6.4-8.2)
[2020-07-20 07:42] LABS: MD YES
[2020-07-20 07:44] LABS: BAND#(MANUAL) 0.05 x10^3/uL; BANDS%(MANUAL) 1 % (0-7); BASOS% (MANUAL) 2 % (0-1); EOS#(MANUAL) 0.05 x10^3/uL (0.0-0.4); EOS% (MANUAL) 1 % (1-7); LYMPH#(MANUAL) 2.78 x10^3/uL (1-3.4); LYMPHS% (MANUAL) 58 % (22-44); MONOS#(MANUAL) 0.19 x10^3/uL (0.3-2.7); MONOS% (MANUAL) 4 % (2-9); REACTIVE LYMPHS # (MANUAL) 0.24 x10^3/uL (0-0); REACTIVE LYMPHS % (MANUAL) 5 % (0-0); SEG#(MANUAL) 1.39 x10^3/uL (1.8-6.8); SEGS% (MANUAL) 29 % (42-75)
[2020-07-20 07:45] LABS: <PLATELET ESTIMATE> ADEQUATE; <PLT MORPHOLOGY> NORMAL PLT MORPH; <RBC MORPHOLOGY> NORMAL
--- NOTE | 2020-07-20 08:18 | NUR ---
us at bedside. urinal given per request.
[2020-07-20] MEDS ORDERED: PROMETHAZINE 25 MG/ML, 1ML ONE (09:08)
[2020-07-20] MEDS ORDERED: MAALOX/HYOSCYAMINE/LIDOCAINE 45 ML BTL ONE (09:09)
--- NOTE | 2020-07-20 09:18 | NUR ---
pt medicated per emar. pt tolerated well. pt's aox4. resps even and unlabored.
[2020-07-20] MEDS ORDERED: THIAMINE 100MG TABLET ONE (09:29)
[2020-07-20] MEDS ORDERED: THIAMINE 100MG TABLET PO ONE (09:30)
[2020-07-20] MEDS ORDERED: PROMETHAZINE 25 MG/ML, 1ML IM ONE (09:30)
[2020-07-20] MEDS ORDERED: MAALOX/HYOSCYAMINE/LIDOCAINE 45 ML BTL PO ONE (09:30)
--- NOTE | 2020-07-20 10:08 | NUR ---
CUTTER OPERATOR HELPER: PT WITH SATS DECREASED TO 60%. PT SNORING RESPIRATIONS AND SOMNOLENT WITH NC AT 4L IN HIS MOUTH. PT PLACED ON 10L VIA OXYMASK. SATS INCREASE TO 98%. DISCUSSED WITH DR. AL. PER eMAR, PT RECEIVED 2ND DOSE OF ATIVAN APPROX 45 MIN AGO. NO NEW ORDERS AT THIS TIME. REPORTED OFF TO PRIMARY RN.
--- NOTE | 2020-07-20 10:36 | NUR ---
PT ON SIMPLE MASK AT 10 LPM. PT HAVING EPISODES OF DESATURATION DOWN TO 82 ON MASK. PT REPOSITIONED IN BED TO SIT MORE UPRIGHT IT APPEARS PTS JAW RELAXES AND OCCLUDES AIRWAY. PROVIDER MADE AWARE.
--- NOTE | 2020-07-20 10:45 | NUR ---
PT PLACED ON END TIDAL MONITORING AT THIS TIME. END TIDAL OF 44 WITH GOOD WAVE FORM. PT HAS PERIODS OF 10-15 SECONDS OF APNEA
--- NOTE | 2020-07-20 10:48 | NUR ---
PROVIDER MADE AWARE OF PREVIOUS NOTE. CENTRAL AISLE CASHIER AT BEDSIDE. CENTRAL AISLE CASHIER EDUCATED ON WHAT APNEA LOOKS LIKE ON END TIDAL AND WHEN TO STIMULATE PT TO BREATH. PER MD AT THIS TIME TECH AT BEDSIDE FOR SAFETY TO AVOID PT INTUBATION. WILL CONTINUE TO MONITOR AND ADVIOSE MD OF CHANGES.
--- NOTE | 2020-07-20 11:01 | NUR ---
tech remains a bedside. suction and bvm setup. all monitoring equipment in place. tech continues to arouse pt by stimulation when pt has periods of apnea.
--- NOTE | 2020-07-20 11:11 | NUR ---
ENDTIDAL OF 40-50 GOOD WAVE FORM WITH PERIODS OF 10 TO 15 SECONDS OF APNEA WHERE JAW THRUST AND STIMULATION IS PERFORMED BY TECH.
--- NOTE | 2020-07-20 11:24 | NUR ---
AT BEDSIDE WITH TECH PTS APNEIC SPELLS ARE ROUGHLY EVERY 10-15 SECONDS UNLESS CONTINUOUSLY STIMULATED BY TECH. PT REMAINS ON 15 LPM TO MAINTAIN SATS DURING APNEIC SPELLS. MADE AWARE. POC UNCHANGED AT THIS TIME. AMMONIA INHALANT USED TO AROUSE PT. PT RESPONDED TO STIMULI AND WAS AWAKE FOR BREIF PERIOD AND ABLE TO CONVERSE BEFORE FALLING ASLEEP
--- NOTE | 2020-07-20 11:37 | NUR ---
PT REQUESTING MORE INHALANTS TO STIMULATE HIM. PUTTING IN ORDER. PHARMACY CONTACTED FOR INHALANTS
--- NOTE | 2020-07-20 11:59 | NUR ---
REQUEST FOR IV FLUIDS FROM PROVIDER. LUNG SOUNDS CLEAR BEFORE INITIATING. MORE INHALANTS REQUESTED FROM PHARMACY.
[2020-07-20] MEDS ORDERED: [UNRECOGNIZED DRUG - OTHER] IH ONE (12:00)
[2020-07-20] MEDS ORDERED: SODIUM CHLORIDE 0.9% 1,000ML IVBOLUS ONE (12:00)
--- NOTE | 2020-07-20 12:34 | NUR ---
ATTEMPT TO RA PT. PT UNABLE TO MAINTAIN O2 SAT GREATER THAN 90.
--- NOTE | 2020-07-20 13:04 | NUR ---
PT UNABLE TO MAINTAIN SATURATIONS WHEN SLEEPING. PT REQUESTING FOOD AT THIS TIME.
--- NOTE | 2020-07-20 13:47 | NUR ---
PT AWAKE AXOX4 AND ALERT. PT IS EATING FOOD PROVIDED AT THIS TIME. PT ON 2 LPM O2 VIA NC.
--- NOTE | 2020-07-20 14:43 | NUR ---
POC TO ADMIT PT. PT UPDATED ON POC
[2020-07-20 14:58] LABS: INTERNATIONAL NORMALIZED RATIO 1.07 (0.93-1.1); PROTHROMBIN TIME 11.4 Seconds (9.6-11.5)
[2020-07-20] MEDS ORDERED: LORazepam 2 MG/ML, 1ML IV PRN ×5 (15:00)
[2020-07-20] MEDS ORDERED: hydrALAzine 20 MG/ML, 1ML IVPush PRN (15:00)
[2020-07-20] MEDS ORDERED: LABETALOL 5MG/ML, 20ML IVPush PRN (15:00)
[2020-07-20] MEDS ORDERED: LORazepam 1MG TABLET PO PRN ×4 (15:00)
[2020-07-20] MEDS ORDERED: ONDANSETRON 2MG/ML, 2ML IVPush PRN (15:00)
[2020-07-20] MEDS ORDERED: DOCUSATE 100 MG CAPSULE PO PRN (15:00)
[2020-07-20] MEDS ORDERED: ACETAMINOPHEN 325 MG TABLET PO PRN (15:00)
[2020-07-20] MEDS ORDERED: LORazepam 0.5MG TABLET PO PRN (15:00)
[2020-07-20] MEDS ORDERED: MELATONIN 5 MG TABLET PO PRN (15:00)
--- NOTE | 2020-07-20 15:29 | NUR ---
ATTEMPT X1 NURSE IN PT ROOM
[2020-07-20] MEDS ORDERED: MAALOX/HYOSCYAMINE/LIDOCAINE 45 ML BTL PO PRN (15:30)
--- NOTE | 2020-07-20 16:15 | NUR ---
BREAK RN: REPORT TO ALEXIS VASQUES, PLAN OF CARE DISCUSSED
[2020-07-20 16:42] VITALS: BP 130/79
[2020-07-20] MEDS ORDERED: MAGNESIUM SULFATE PMX 2GM/50ML 50 ML IV ONE (17:00)
[2020-07-20] MEDS: POTASSIUM CHLORIDE 20 MEQ, MAGNESIUM SULFATE 2 GM, THIAMINE 200 MG, FOLIC ACID 1 MG in ... IV SCH (17:26)
[2020-07-20] MEDS: DIAZEPAM 5 MG TABLET PO SCH ×4 (17:56→19:54)
[2020-07-20] MEDS: PANTOPRAZOLE 40 MG IV IVPush SCH (18:35)
[2020-07-20 19:26] VITALS: BP 158/97
[2020-07-20] MEDS: ENOXAPARIN 40 MG/0.4 ML SQ SCH (19:54)
[2020-07-20] MEDS: morphine SULFATE 10 MG/ML, 1ML IVPush PRN (21:50)
[2020-07-21 01:08] VITALS: BP 142/87
[2020-07-21] MEDS ORDERED: DIAZEPAM 10 MG TABLET ONE ×2 (02:42→08:04)
[2020-07-21] MEDS: morphine SULFATE 10 MG/ML, 1ML IVPush PRN ×5 (02:44→21:55)
[2020-07-21] MEDS: DIAZEPAM 5 MG TABLET PO SCH ×5 (02:44→20:27)
[2020-07-21] MEDS: PANTOPRAZOLE 40 MG IV IVPush SCH ×2 (05:22→19:26)
[2020-07-21 06:40] LABS: BASOPHILS % (AUTO) 1 % (0-1); EOSINOPHILS % (AUTO) 2 % (1-7); LYMPHOCYTES % (AUTO) 44 % (22-44); MEAN CORPUSCULAR HEMOGLOBIN 30.9 pg (27.5-34.5); MEAN CORPUSCULAR HGB CONC 34.7 g/dL (33.2-36.2); MEAN PLATELET VOLUME 7.5 fL (7.4-10.4); MONOCYTES % (AUTO) 10 % (2-9); NEUTROPHILS % (AUTO) 43 % (42-75); PLATELET COUNT 160 x10^3/uL (130-400); RED BLOOD COUNT 4.71 x10^6/uL (4.38-5.82); RED CELL DISTRIBUTION WIDTH 13.4 % (9.4-14.8)
[2020-07-21 06:52] LABS: ALANINE AMINOTRANSFERASE 148 U/L (12-78); ALBUMIN 3.5 g/dL (3.4-5.0); ANION GAP 3 mmol/L (5-15); CALCIUM 8.5 mg/dL (8.5-10.1); CHLORIDE 105 mmol/L (98-107)
[2020-07-21 06:55] LABS: ALKALINE PHOSPHATASE 63 U/L (45-117); BILIRUBIN,TOTAL 0.8 mg/dL (0.2-1.0); CREATININE 0.99 mg/dL (0.7-1.3); TOTAL PROTEIN 6.8 g/dL (6.4-8.2)
[2020-07-21 06:59] LABS: MD SCAN
[2020-07-21] MEDS ORDERED: PANTOPRAZOLE 40MG TABLET PO SCH (07:30)
[2020-07-21] MEDS: ESCITALOPRAM 10MG TABLET PO SCH (08:08)
[2020-07-21] MEDS: MULTIVITAMINS/MINERALS TABLET PO SCH (08:08)
[2020-07-21 09:14] VITALS: BP 148/96
[2020-07-21 14:57] VITALS: BP 142/91
[2020-07-21] MEDS ORDERED: DIAZEPAM 5 MG TABLET PO ONE (15:00)
[2020-07-21 19:19] VITALS: BP 145/97
[2020-07-21] MEDS: ENOXAPARIN 40 MG/0.4 ML SQ SCH (20:00)
[2020-07-21] MEDS: POTASSIUM CHLORIDE 20 MEQ, MAGNESIUM SULFATE 2 GM, THIAMINE 200 MG, FOLIC ACID 1 MG in ... IV SCH (20:27)
[2020-07-22 00:55] VITALS: BP 135/89
[2020-07-22] MEDS: morphine SULFATE 10 MG/ML, 1ML IVPush PRN ×3 (01:14→09:21)
[2020-07-22] MEDS: DIAZEPAM 5 MG TABLET PO SCH ×2 (03:08→07:58)
[2020-07-22] MEDS: PANTOPRAZOLE 40 MG IV IVPush SCH (05:19)
[2020-07-22 06:41] VITALS: BP 145/95
[2020-07-22] MEDS: ESCITALOPRAM 10MG TABLET PO SCH (07:58)
[2020-07-22] MEDS: MULTIVITAMINS/MINERALS TABLET PO SCH (07:58)
[2020-07-22 08:25] LABS: ALANINE AMINOTRANSFERASE 117 U/L (12-78); ALBUMIN 3.5 g/dL (3.4-5.0); ANION GAP 4 mmol/L (5-15); CALCIUM 8.7 mg/dL (8.5-10.1); CHLORIDE 102 mmol/L (98-107); CREATININE 0.99 mg/dL (0.7-1.3)
[2020-07-22 08:27] LABS: ALKALINE PHOSPHATASE 65 U/L (45-117); BILIRUBIN,TOTAL 0.8 mg/dL (0.2-1.0); TOTAL PROTEIN 6.9 g/dL (6.4-8.2)
[2020-07-22] MEDS ORDERED: PANT40TA3 PO (09:42)
[2020-07-22] MEDS ORDERED: ESCI10TA97 PO (09:42)
[2020-07-22] MEDS ORDERED: TRAZ50TA66 PO (09:42)
== END 2020-07-22 11:13 | disposition home or self-care (01) | DRG 391 ==
LOC: ED 07:14 → 4EST 16:40 → DCLOUNGE 07-22 11:10
PROVIDERS: ADMIT Hospitalist; ATTEND Hospitalist
DX: K29.20 Alcoholic gastritis without bleeding (principal); J96.91 Respiratory failure, unspecified with hypoxia; F10.139 Alcohol abuse with withdrawal, unspecified; D72.820 Lymphocytosis (symptomatic); F32.9 Major depressive disorder, single episode, unspecified; F51.04 Psychophysiologic insomnia; K76.0 Fatty (change of) liver, not elsewhere classified; G47.33 Obstructive sleep apnea (adult) (pediatric); Y90.0 Blood alcohol level of less than 20 mg/100 ml
CPT/HCPCS: 36415; 96374; 96375; 96376; 99285; J7042; 71045; 76700; 80053; 80320; 83690; 83735; 84100; 85025; 85610; 91300; G0378; J1650; J2405; J2550; J3411; J3475; J3480; C9113; G0480; J2060; J2270; J7030

== ENCOUNTER 2020-08-14 20:40 | Emergency (ER) | payer MEDICAID ==
[~2020-08-14] VITALS: Ht 177.8 cm; Wt 85.0 kg
[~2020-08-14 20:40] MED LIST changes: +ESCI10TA97 PO; +PANT40TA3 PO; +TRAZ50TA66 PO
[2020-08-14] MEDS ORDERED: LORazepam 2 MG/ML, 1ML ONE (21:13)
[2020-08-14] MEDS ORDERED: ONDANSETRON 2MG/ML, 2ML ONE (21:14)
[2020-08-14] MEDS ORDERED: LORazepam 2 MG/ML, 1ML IVPush ONE (21:30)
[2020-08-14] MEDS ORDERED: ONDANSETRON 2MG/ML, 2ML IVPush ONE (21:30)
[2020-08-14] MEDS ORDERED: SODIUM CHLORIDE 0.9% 1,000ML IVBOLUS ONE (21:30)
[2020-08-14] MEDS ORDERED: SODIUM CHLORIDE FLUSH 10ML SYR IVF ONE (21:30)
--- NOTE | 2020-08-14 21:32 | NUR ---
pt to us. as
[2020-08-14 21:33] LABS: MEAN CORPUSCULAR HEMOGLOBIN 30.5 pg (27.5-34.5); MEAN CORPUSCULAR HGB CONC 33.8 g/dL (33.2-36.2); MEAN PLATELET VOLUME 7.7 fL (7.4-10.4); PLATELET COUNT 302 x10^3/uL (130-400); RED BLOOD COUNT 4.98 x10^6/uL (4.38-5.82); RED CELL DISTRIBUTION WIDTH 13.4 % (9.4-14.8)
[2020-08-14 21:41] LABS: ALANINE AMINOTRANSFERASE 133 U/L (12-78); ALBUMIN 3.6 g/dL (3.4-5.0); ANION GAP 9 mmol/L (5-15); CALCIUM 8.4 mg/dL (8.5-10.1); CHLORIDE 113 mmol/L (98-107)
[2020-08-14 21:43] LABS: ALKALINE PHOSPHATASE 78 U/L (45-117); BILIRUBIN,TOTAL 0.2 mg/dL (0.2-1.0); CREATININE 1.21 mg/dL (0.7-1.3); TOTAL PROTEIN 6.9 g/dL (6.4-8.2)
[2020-08-14 22:22] LABS: MD YES
[2020-08-14] MEDS ORDERED: FAMOTIDINE 20 MG/2 ML ONE (22:22)
[2020-08-14 22:24] LABS: ANISOCYTOSIS 1+; BAND#(MANUAL) 0.05 x10^3/uL; BANDS%(MANUAL) 1 % (0-7); BASOS#(MANUAL) 0.05 x10^3/uL (0-0.1); BASOS% (MANUAL) 1 % (0-1); EOS#(MANUAL) 0.05 x10^3/uL (0.0-0.4); EOS% (MANUAL) 1 % (1-7); LYMPH#(MANUAL) 2.78 x10^3/uL (1-3.4); LYMPHS% (MANUAL) 58 % (22-44); MONOS#(MANUAL) 0.48 x10^3/uL (0.3-2.7); MONOS% (MANUAL) 10 % (2-9); REACTIVE LYMPHS # (MANUAL) 0.19 x10^3/uL (0-0); REACTIVE LYMPHS % (MANUAL) 4 % (0-0); SEGS% (MANUAL) 25 % (42-75)
[2020-08-14 22:25] LABS: <PLATELET ESTIMATE> ADEQUATE; <PLT MORPHOLOGY> NORMAL PLT MORPH; SMUDGE CELLS 1+
[2020-08-14] MEDS ORDERED: FAMOTIDINE 20 MG/2 ML IVPush ONE (22:30)
--- NOTE | 2020-08-14 22:50 | NUR ---
Report received from LAYO Roberts. This RN to assume care. Patient resting in [facility]. C/o abd pain. Advised patient of his KINDRA and that pain meds cannot be admin at this time.
--- NOTE | 2020-08-15 00:51 | NUR ---
ASSUMED CARE FROM LAYO DEL VALLE. [facility] YUE.
--- NOTE | 2020-08-15 00:53 | NUR ---
Report given to LAYO Fulton. Patient care transferred.
[2020-08-15 01:06] VITALS: BP 145/64
--- NOTE | 2020-08-15 01:56 | NUR ---
PT ABLE TO AMBULATE STEADILY, PT PROVIDED A SANDWICH AND DISCHARGE INSTRUCTIONS AND EDUCATION. PT VERBALIZED UNDERSTAND. PT WILL CALL [facility] FOR TRANSPORTATION HOME.
== END 2020-08-15 02:05 | disposition home or self-care (01) ==
LOC: ED 20:49
DX: F10.229 Alcohol dependence with intoxication, unspecified (principal); R10.84 Generalized abdominal pain; R11.2 Nausea with vomiting, unspecified; Z72.9 Problem related to lifestyle, unspecified; Y90.0 Blood alcohol level of less than 20 mg/100 ml
CPT/HCPCS: 36415; 80053; 80320; 83690; 85025; 93005; 96361; 96374; 96375; 99285; J2060; J2405; J7030; G0480

== ENCOUNTER 2020-08-17 05:01 | Emergency (ER) | payer MEDICAID ==
[~2020-08-17] VITALS: Ht 170.2 cm; Wt 86.0 kg
[2020-08-17] MEDS ORDERED: LORazepam 2 MG/ML, 1ML IVPush ONE (05:30)
[2020-08-17] MEDS ORDERED: SODIUM CHLORIDE 0.9% 1,000ML IVBOLUS ONE (05:30)
[2020-08-17] MEDS ORDERED: MAALOX/HYOSCYAMINE/LIDOCAINE 45 ML BTL PO ONE (05:30)
[2020-08-17] MEDS ORDERED: ONDANSETRON 2MG/ML, 2ML IVPush ONE (05:30)
[2020-08-17] MEDS ORDERED: THIAMINE 100MG TABLET PO ONE (05:30)
[2020-08-17] MEDS ORDERED: ONDANSETRON 2MG/ML, 2ML ONE (05:37)
[2020-08-17] MEDS ORDERED: LORazepam 2 MG/ML, 1ML ONE (05:37)
[2020-08-17 05:59] LABS: ALANINE AMINOTRANSFERASE 158 U/L (12-78); ALBUMIN 3.8 g/dL (3.4-5.0); ANION GAP 9 mmol/L (5-15); CALCIUM 8.5 mg/dL (8.5-10.1); CHLORIDE 108 mmol/L (98-107)
[2020-08-17 06:01] LABS: ALKALINE PHOSPHATASE 68 U/L (45-117); BILIRUBIN,TOTAL 0.8 mg/dL (0.2-1.0); TOTAL PROTEIN 7.4 g/dL (6.4-8.2)
[2020-08-17 06:09] LABS: BASOPHILS % (AUTO) 1 % (0-1); EOSINOPHILS % (AUTO) 1 % (1-7); LYMPHOCYTES % (AUTO) 65 % (22-44); MEAN PLATELET VOLUME 7.7 fL (7.4-10.4); MONOCYTES % (AUTO) 7 % (2-9); NEUTROPHILS % (AUTO) 26 % (42-75); PLATELET COUNT 249 x10^3/uL (130-400); RED BLOOD COUNT 5.21 x10^6/uL (4.38-5.82); RED CELL DISTRIBUTION WIDTH 13.5 % (9.4-14.8)
[2020-08-17] MEDS ORDERED: METOCLOPRAMIDE 5 MG/ML, 2ML ONE (06:12)
[2020-08-17] MEDS ORDERED: METOCLOPRAMIDE 5 MG/ML, 2ML IVPush ONE (06:30)
[2020-08-17] MEDS ORDERED: THIAMINE 100MG TABLET ONE (06:40)
[2020-08-17] MEDS ORDERED: MAALOX/HYOSCYAMINE/LIDOCAINE 45 ML BTL ONE (06:40)
[2020-08-17 06:44] LABS: MD SCAN
--- NOTE | 2020-08-17 06:52 | NUR ---
REPORT TO LAYO SNOW
--- NOTE | 2020-08-17 06:56 | NUR ---
pa at bedside to explain all results at this time.
--- NOTE | 2020-08-17 06:56 | NUR ---
report received from tamika fragoso.
[2020-08-17] MEDS ORDERED: PANTOPRAZOLE 40 MG IV IVPush ONE (07:00)
[2020-08-17] MEDS ORDERED: PROMETHAZINE 25 MG/ML, 1ML IM ONE (07:00)
[2020-08-17] MEDS ORDERED: PANTOPRAZOLE 40 MG IV ONE (07:54)
[2020-08-17] MEDS ORDERED: PROMETHAZINE 25 MG/ML, 1ML ONE (07:54)
[2020-08-17 08:02] VITALS: BP 126/75
--- NOTE | 2020-08-17 08:08 | NUR ---
IV removed with tip intact. Patient given discharge instructions and prescription and they have confirmed that they understand the instructions. Patient stable and ambulatory with steady gait from ED to private vehicle.
== END 2020-08-17 08:09 | disposition home or self-care (01) ==
LOC: ED 06:35
DX: K29.20 Alcoholic gastritis without bleeding (principal); F10.229 Alcohol dependence with intoxication, unspecified; R10.13 Epigastric pain; R11.2 Nausea with vomiting, unspecified; Y90.0 Blood alcohol level of less than 20 mg/100 ml
CPT/HCPCS: 36415; 76700; 80053; 80320; 83690; 85025; 96361; 96372; 96374; 96375; 99285; C9113; J2060; J2405; J2550; J2765; J7030; G0480

== ENCOUNTER 2020-08-22 20:51 | Emergency (ER) | payer MEDICAID ==
[~2020-08-22] VITALS: Ht 170.2 cm; Wt 110.2 kg
[2020-08-22] MEDS ORDERED: FAMOTIDINE 20 MG/2 ML ONE (21:24)
[2020-08-22] MEDS ORDERED: ONDANSETRON 2MG/ML, 2ML ONE (21:24)
[2020-08-22] MEDS ORDERED: MAALOX/HYOSCYAMINE/LIDOCAINE 45 ML BTL ONE (21:24)
[2020-08-22] MEDS ORDERED: FAMOTIDINE 20 MG/2 ML IVPush ONE (21:30)
[2020-08-22] MEDS ORDERED: ONDANSETRON 2MG/ML, 2ML IVPush ONE (21:30)
[2020-08-22] MEDS ORDERED: SODIUM CHLORIDE 0.9% 1,000ML IVBOLUS ONE (21:30)
[2020-08-22] MEDS ORDERED: MAALOX/HYOSCYAMINE/LIDOCAINE 45 ML BTL PO ONE (21:30)
[2020-08-22] MEDS ORDERED: SODIUM CHLORIDE FLUSH 10ML SYR IVF ONE (21:30)
[2020-08-22 21:42] LABS: BASOPHILS % (AUTO) 1 % (0-1); EOSINOPHILS % (AUTO) 2 % (1-7); LYMPHOCYTES % (AUTO) 47 % (22-44); MEAN CORPUSCULAR HEMOGLOBIN 30.3 pg (27.5-34.5); MEAN CORPUSCULAR HGB CONC 34.3 g/dL (33.2-36.2); MEAN PLATELET VOLUME 7.5 fL (7.4-10.4); MONOCYTES % (AUTO) 11 % (2-9); NEUTROPHILS % (AUTO) 39 % (42-75); PLATELET COUNT 178 x10^3/uL (130-400); RED BLOOD COUNT 5.22 x10^6/uL (4.38-5.82); RED CELL DISTRIBUTION WIDTH 13.3 % (9.4-14.8)
[2020-08-22 21:44] LABS: MD NO
[2020-08-22 21:56] LABS: ALBUMIN 3.5 g/dL (3.4-5.0); ANION GAP 10 mmol/L (5-15); CALCIUM 8.1 mg/dL (8.5-10.1); CHLORIDE 105 mmol/L (98-107)
[2020-08-22 21:58] LABS: ALKALINE PHOSPHATASE 79 U/L (45-117); BILIRUBIN,TOTAL 0.6 mg/dL (0.2-1.0); CREATININE 1.09 mg/dL (0.7-1.3); TOTAL PROTEIN 7.2 g/dL (6.4-8.2)
[2020-08-22 22:09] LABS: ALANINE AMINOTRANSFERASE 113 U/L (12-78)
--- NOTE | 2020-08-22 22:50 | NUR ---
pt stating still having ab pain, erp aware. etoh level to high, awaiting us at this time. pt aware
[2020-08-22 23:06] VITALS: BP 106/48
== END 2020-08-22 23:52 | disposition home or self-care (01) ==
LOC: ED 22:27
DX: K29.20 Alcoholic gastritis without bleeding (principal); F10.10 Alcohol abuse, uncomplicated; R10.13 Epigastric pain; R00.0 Tachycardia, unspecified; R11.2 Nausea with vomiting, unspecified; R19.7 Diarrhea, unspecified; Z79.899 Other long term (current) drug therapy; Y90.0 Blood alcohol level of less than 20 mg/100 ml
CPT/HCPCS: 36415; 76700; 80053; 80320; 83690; 85025; 93005; 96361; 96374; 96375; 99285; J2405; J7030; G0480

== ENCOUNTER 2020-08-25 20:16 | Emergency (ER) | payer MEDICAID ==
[~2020-08-25] VITALS: Ht 170.2 cm; Wt 110.0 kg
[2020-08-25 22:28] LABS: ALBUMIN 3.9 g/dL (3.4-5.0); ANION GAP 11 mmol/L (5-15); CHLORIDE 107 mmol/L (98-107)
[2020-08-25 22:30] LABS: MEAN CORPUSCULAR HEMOGLOBIN 29.6 pg (27.5-34.5); MEAN PLATELET VOLUME 7.5 fL (7.4-10.4); PLATELET COUNT 198 x10^3/uL (130-400); RED BLOOD COUNT 5.65 x10^6/uL (4.38-5.82); RED CELL DISTRIBUTION WIDTH 13.4 % (9.4-14.8)
[2020-08-25 22:32] LABS: ALANINE AMINOTRANSFERASE 197 U/L (12-78); ALKALINE PHOSPHATASE 92 U/L (45-117); BILIRUBIN,TOTAL 0.4 mg/dL (0.2-1.0); CREATININE 1.22 mg/dL (0.7-1.3); TOTAL PROTEIN 7.8 g/dL (6.4-8.2)
[2020-08-25] MEDS ORDERED: MAALOX/HYOSCYAMINE/LIDOCAINE 45 ML BTL PO ONE (23:00)
[2020-08-25] MEDS ORDERED: ACETAMINOPHEN 500 MG TABLET PO ONE (23:00)
[2020-08-25 23:22] VITALS: BP 117/66
[2020-08-25] MEDS ORDERED: ACETAMINOPHEN 500 MG TABLET ONE (23:25)
[2020-08-25] MEDS ORDERED: MAALOX/HYOSCYAMINE/LIDOCAINE 45 ML BTL ONE (23:25)
[2020-08-25 23:26] LABS: MD YES
[2020-08-25 23:28] LABS: ANISOCYTOSIS 1+; BAND#(MANUAL) 0.05 x10^3/uL; BANDS%(MANUAL) 1 % (0-7); BASOS% (MANUAL) 2 % (0-1); EOS#(MANUAL) 0.15 x10^3/uL (0.0-0.4); EOS% (MANUAL) 3 % (1-7); LYMPH#(MANUAL) 3.16 x10^3/uL (1-3.4); LYMPHS% (MANUAL) 62 % (22-44); MONOS#(MANUAL) 0.46 x10^3/uL (0.3-2.7); MONOS% (MANUAL) 9 % (2-9); OVALOCYTES 1+; REACTIVE LYMPHS % (MANUAL) 4 % (0-0); SEG#(MANUAL) 0.97 x10^3/uL (1.8-6.8); SEGS% (MANUAL) 19 % (42-75)
[2020-08-25 23:29] LABS: SMUDGE CELLS 1+
[2020-08-25 23:30] LABS: <PLATELET ESTIMATE> ADEQUATE; <PLT MORPHOLOGY> NORMAL PLT MORPH
--- NOTE | 2020-08-26 00:02 | NUR ---
Patient states has pancreatitis from drinking was diagnosed 3 years ago. Pt medicated GI cocktail and tyelenol for pain. Pt given discharge instructions and they have confirmed that they understand the instructions. Patient ambulatory with steady gait.
== END 2020-08-26 00:04 | disposition home or self-care (01) ==
LOC: ED 22:50
DX: K29.20 Alcoholic gastritis without bleeding (principal); F10.10 Alcohol abuse, uncomplicated; R11.2 Nausea with vomiting, unspecified; Z87.891 Personal history of nicotine dependence; Y90.0 Blood alcohol level of less than 20 mg/100 ml
CPT/HCPCS: 36415; 80053; 83690; 85025; 99283